=== PATIENT | male | born 1970 | race Caucasian/White ===

== ENCOUNTER 2019-06-11 07:06 | Day surgery (SDC) | payer BC ==
[~2019-06-11] VITALS: Ht 180.3 cm; Wt 89.1 kg
[2019-06-11] MEDS ORDERED: ONE-A-DAY ESSE1 EACH PO (07:30)
[2019-06-11 07:44] VITALS: BP 138/95; PULSE 64; TEMP 98
[2019-06-11 08:40] VITALS: BP 130/70; PULSE 52
--- NOTE | 2019-06-11 08:40 | NUR ---
Pt arrived back to room post procedure via cart with Endo RN. Received report from SIGRID Roy. Pt ambulated to chair easily with touch assist and is awake and oriented. VSS and WNL and call light within reach. at bedside [id number]. Linn at bedside reviewing procedure with pt and . Blueberry muffin and juice brought per pt's request.
[2019-06-11 08:45] VITALS: BP 113/80; PULSE 52
--- NOTE | 2019-06-11 09:00 | NUR ---
Pt finished muffin and juice without complaints of nausea or pain. Pt states that he is ready to go home. VSS and WNL.
--- NOTE | 2019-06-11 09:09 | NUR ---
VSS and WNL. MUffin and juice brought per pt's request. Pt awake alert and oriented. Pt denies nausea or pain at this time. Call light within reach and pt's at bedside.
[2019-06-11 09:10] VITALS: BP 124/89; PULSE 53
[2019-06-11 09:15] VITALS: BP 119/83; PULSE 50
--- NOTE | 2019-06-11 09:15 | NUR ---
Pt meets criteria for discharge; reviewed discharge information with patient and . They expressed understanding of the information and had no further concerns/questions. VSS and WNL
== END 2019-06-11 09:29 | disposition home or self-care (01) ==
LOC: SDCO 07:06
DX: Z12.11 Encounter for screening for malignant neoplasm of colon (principal); D12.3 Benign neoplasm of transverse colon; K55.20 Angiodysplasia of colon without hemorrhage
CPT/HCPCS: J2250; J2405; J3010; J7030